=== PATIENT | female | born 2000 | race Caucasian/White ===

== ENCOUNTER 2023-01-19 05:33 | Emergency (ER) | payer SELFPAY ==
[2023-01-19] MEDS ORDERED: Sodium Chloride 0.9% 1,000 ML IV ONE (05:46)
[2023-01-19] MEDS ORDERED: Sodium Chloride 0.9% 2.5 ML Syringe FLUSH PRN (05:46)
[2023-01-19] MEDS ORDERED: Ondansetron 4 MG/2 ML SDV IVPUSH ONE (05:46)
[2023-01-19] MEDS ORDERED: Ketorolac 30 MG/ML SDV IVPUSH ONE (05:46)
[2023-01-19] MEDS ORDERED: Sodium Chloride 0.9% 10 ML Syringe FLUSH PRN (05:46)
[2023-01-19 06:16] LABS: CARBON DIOXIDE,CO2 24.4 mmol/L (21.0-32.0); POTASSIUM,K 3.6 mmol/L (3.5-5.1)
[2023-01-19] MEDS ORDERED: Tamsulosin 0.4 MG Cap.ER PO ONE (07:45)
[2023-01-19] MEDS ORDERED: Ondansetron 4 MG Tab.DIS PO ONE (07:51)
== END 2023-01-19 08:14 | disposition home or self-care (01) ==
LOC: MW.ED 05:33
DX: N13.2 Hydronephrosis with renal and ureteral calculous obstruction (principal); Z79.899 Other long term (current) drug therapy
CPT/HCPCS: 36415; 74176; 80053; 81003; 81025; 84703; 85025; 96361; 96374; 96375; 99284; A9270; J1885; J2405; J3490; J7030